=== PATIENT | female | born 1955 | race Caucasian/White ===

== ENCOUNTER 2019-10-07 08:19 | Outpatient (CLI) | payer MEDICARE, OTHER, SELFPAY | END 2019-10-07 08:20 | disposition home or self-care (01) | LOC: CHSIMG 08:22 | PROVIDERS: PCP Internal Medicine; Visit Provider Internal Medicine | DX: Z53.9 Procedure and treatment not carried out, unspecified reason (principal) | CPT/HCPCS: 99199 ==

== ENCOUNTER 2020-03-26 10:05 | Outpatient (CLI) | payer MEDICARE, SELFPAY ==
[2020-03-26 10:55] LABS: SARS-CoV-2 Ag Positive (Negative)
== END 2020-03-26 10:06 | disposition home or self-care (01) ==
LOC: CHSLAB 10:11
PROVIDERS: PCP Internal Medicine; Visit Provider Internal Medicine
DX: U07.1 COVID-19 (principal)
CPT/HCPCS: 87426; C9803

== ENCOUNTER 2020-10-04 13:34 | Outpatient (CLI) | payer MEDICARE, OTHER, SELFPAY ==
--- NOTE | ~2020-10-04 | XR_ITS ---
XR knee LT min 4V DATE: 10/04/2020 14:00 INDICATION: Bilateral knee pain. No injury. TECHNIQUE: 4 views COMPARISON: None FINDINGS: . No radiopaque intra-articular loose body or chondrocalcinosis. No fracture or dislocation or joint effusion. No periosteal reaction or bone destruction. IMPRESSION: No significant abnormality Reviewed, dictated and finalized at location A. IMPRESSION: No significant abnormality
--- NOTE | ~2020-10-04 | XR_ITS ---
XR knee RT min 4V DATE: 10/04/2020 14:00 INDICATION: Bilateral knee pain. No injury. TECHNIQUE: 4 views of right knee COMPARISON: None FINDINGS: Mild loss of height of medial compartment joint space. No fracture or dislocation or joint effusion, radiopaque interarticular loose body or chondrocalcinosis. No periosteal reaction or bone d estruction. IMPRESSION: Mild loss of height of medial compartment joint space; no fracture or dislocation or join t effusion Reviewed, dictated and finalized at location A. IMPRESSION: Mild loss of height of medial compartment joint space; no fracture or dislocation or joint effusion
== END 2020-10-04 13:35 | disposition home or self-care (01) ==
LOC: CHSIMG 13:38
PROVIDERS: PCP Internal Medicine; Visit Provider Internal Medicine
DX: M25.562 Pain in left knee (principal); M25.561 Pain in right knee
CPT/HCPCS: 73564

== ENCOUNTER 2021-01-17 13:42 | Outpatient (CLI) | payer MEDICARE, OTHER, SELFPAY ==
--- NOTE | ~2021-01-17 | MM_ITS ---
EXAMINATION: MM screening [facility] w [facility] HISTORY: Screening mammogram TECHNIQUE: Craniocaudal and mediolateral oblique 3-D tomosynthesis images were obtained and synthetic 2-D images were generated. CAD analysis was submitted and interpreted. COMPARISON: No prior mammogram is available for comparison at this institution. BREAST PARENCHYMAL COMPOSITION: FINDINGS: Stable circumscribed 6 mm benign-appearing posterior mid outer left intramammary lymph node . Stable approximately 6 mm circumscribed mass with benign calcification, likely a small partially calc ified fibroadenoma, anterior outer mid left breast There is no evidence of suspicious mass, calcification, or architectural distortion to suggest malign pamlea in either breast. There has been no suspicious interval change. IMPRESSION: 1. No mammographic evidence of malignancy. 2. Recommend routine screening mammography in one year. BI-RADS Category 2: Benign finding(s). Reviewed, dictated and finalized at location A.
--- NOTE | ~2021-01-17 | DEXA_ITS ---
Bone Density Report Name: Yvonne Jones Age: 66 Sex: Female Ethnicity: White Date of : 1955 Indication: postmenopausal; screening for osteoporosis; height loss; Referring Provider: William Orellana Study: Bone densitometry was performed. Exam Date: January 17, 2021 Accession number: [id number] Bone Density: Region BMD T-score Z-score Classification AP Spine(L1, L2, L3) 0.905 -1.0 0.8 Normal Femoral Neck (Left) 0.772 -0.7 0.9 Normal Total Hip (Left) 0.848 -0.8 0.6 Normal Femoral Neck (Right) 0.709 -1.3 0.4 Osteopenia Total Hip (Right) 0.815 -1.0 0.3 Normal Femoral Neck Mean 0.740 -1.0 0.6 Normal Total Hip Mean 0.832 -0.9 0.4 Normal World Health Organization criteria for BMD impression classify patients as: Normal (T-score at or above -1.0), Osteopenia (T-score between -1.0 and -2.5), or Osteoporosis (T-score at or below -2.5). 10-year Fracture Risk(1): Major Osteoporotic Fracture 8.3% Hip Fracture 0.8% Reported Risk Factors: [place] (), Neck BMD=0.709, BMI=33.1 (1) FRAX(R) Version 3.08. Fracture probability calculated for an untreated patient. Fracture probability may be lower if the patient has received treatment. Clinical Information Provided by Patient: Has used the following medications: Vitamin D Patient maximum height was 62.5 Menopause Age: 54 No regular weight bearing exercise Does not regularly consume dairy products Drinks caffeinated beverages Onset of menses at age 11 Number of children 2 Impression: The patient has low bone mass, based on the Right Femoral Neck T-score. Discussion: BONE DENSITY IS LOW AT ONE OR MORE SKELETAL SITES. This patient's lowest T-score is low at one or more skeletal sites. It meets the World Health Organization's (WHO) criteria for ?low bone mass? (T-score between -1.0 and -2.5). The patient's 10-year risk of fracture as calculated by FRAX is less than the threshold where pharmacological therapy is recommended by the National Osteoporosis Foundation (NOF). However, all treatment decisions require clinical judgment and consideration of individual patient factors, including patient preferences, comorbidities, previous drug use, risk factors not captured in the FRAX model (e.g., frailty, falls, vitamin D deficiency, increased bone turnover, interval significant decline in bone density) and possible under or overestimation of fracture risk by FRAX. The patient should follow a healthful lifestyle (good nutrition with adequate calcium and vitamin D, and appropriate weight-bearing exercise). Follow-Up: Consider repeating this study in 2 to 3 years to reassess this patient's status, or sooner if there is some new clinical indication. Reported by: Dr. Compa Pike on 01/17/2021 2:35:00 PM.
== END 2021-01-17 13:43 | disposition home or self-care (01) ==
PROVIDERS: PCP Internal Medicine; Visit Provider Internal Medicine
DX: M81.0 Age-related osteoporosis without current pathological fracture (principal); Z12.31 Encounter for screening mammogram for malignant neoplasm of breast
CPT/HCPCS: 77063; 77067; 77080

== ENCOUNTER 2021-07-14 12:30 | Emergency (ER) | payer MEDICARE, OTHER, SELFPAY ==
--- NOTE | ~2021-07-14 | CT_ITS ---
EXAMINATION: CT brain wo con DATE: 07/14/2021 13:19 INDICATION: Syncope with 20 seconds duration loss of consciousness. Weakness. TECHNIQUE: Computed tomography (CT) of the head was performed without intravenous contrast. Sagittal and coronal reconstructions were performed. The mA was adjusted according to patient size. Iterative reconstruction technique was employed. The dose-length product was 529.67 mGy-cm. COMPARISON: None FINDINGS: No acute intracranial hemorrhage, acute infarction or abnormal extra axial fluid collection. Ventricl es are normal and symmetric. No mass/mass effect. The orbits, paranasal sinuses and mastoid air cells are normal. IMPRESSION: 1. Normal head CT. Reviewed, dictated and finalized at location A. IMPRESSION: 1. Normal head CT.
--- NOTE | ~2021-07-14 | XR_ITS ---
EXAMINATION: XR chest 1V portable DATE: 07/14/2021 13:20 INDICATION: Syncope TECHNIQUE: frontal view of the chest was obtained. COMPARISON: Chest radiograph dated 2 FINDINGS: The lungs remain clear with no focal airspace opacities, pulmonary edema, pleural effusion or pneumot horax. The cardiomediastinal silhouette is normal. Mild to moderate thoracic spondylosis. IMPRESSION: 1. No acute cardiopulmonary disease. Reviewed, dictated and finalized at location A.
[2021-07-14 12:30] VITALS: BP 130/69; PULSE 61; RESP 20; TEMP 36.9; O2SAT 98
--- NOTE | 2021-07-14 12:42 | ECG_ITS ---
Measurements Intervals [place] Rate: 64 P: 17 [place]: 144 QRS: 62 QRSD: 83 T: 80 QT: 405 QTc: 418 Interpretive Statements SINUS RHYTHM MINOR T-WAVE ABNORMALITY BORDERLINE ECG COMPARED TO ECG 02/08/2019 09:09:33 NO SIGNIFICANT CHANGES Electronically Signed On 07-15-2021 16:54:07 CDT by Yogi Rodriguez M.D.
--- NOTE | 2021-07-14 12:49 | PC.NURSE ---
johnie from xray in with pt , pt refused head ct and chest xray. pt states i dont need that , all i need is some iv fluids
--- NOTE | 2021-07-14 12:50 | PC.NURSE ---
Doctor Fernando in with pt
[2021-07-14 12:58] LABS: Basophils Absolute Auto 0.04 K/mm3 (0.00-0.10); Basophils Percent Auto 0.6 % (0.0-1.0); Eosinophils Absolute Auto 0.05 K/mm3 (0.02-0.50); Eosinophils Percent Auto 0.8 % (1.0-6.0); Hematocrit 38.7 % (35.0-42.0); Hemoglobin 13.2 g/dL (11.7-13.8); Immature Granulocyte Absolute 0.03 K/mm3 (0.00-0.00); Immature Granulocyte Percent A 0.5 % (0.0-0.0); Lymphocytes Absolute Auto 1.79 K/mm3 (1.10-4.50); Lymphocytes Percent Auto 28.2 % (18.0-42.0); Mean Corpuscular HGB Conc 34.1 g/dL (32.0-36.0); Mean Corpuscular Hemoglobin 30.6 pg (27.0-31.0); Mean Corpuscular Volume 89.8 fL (78.0-102.0); Mean Platelet Volume 10.2 fl (9.2-11.8); Monocytes Absolute Auto 0.41 K/mm3 (0.10-0.90); Monocytes Percent Auto 6.5 % (2.0-11.0); Neutrophils Percent Auto 63.4 % (50.0-70.0); Platelet Count Result 173 K/mm3 (150-420); Red Blood Count 4.31 M/mm3 (4.20-5.40); Red Cell Distribution Width 12.3 % (11.6-14.4); White Blood Count 6.3 K/mm3 (4.8-10.8)
[2021-07-14 13:03] VITALS: BP 123/85; PULSE 68; RESP 14; O2SAT 100
[2021-07-14 13:15] LABS: Alanine Aminotransferase 51 U/L (14-59); Albumin Level 3.7 g/dL (3.4-5.0); Alkaline Phosphatase 121 U/L (46-116); Anion Gap 9 mmol/L (8-16); Aspartate Amino Transferase 22 U/L (15-37); Bilirubin,Total 0.6 mg/dL (0.00-1.00); Blood Urea Nitrogen 13 mg/dL (7-18); Calcium 9.9 mg/dL (8.5-10.1); Carbon Dioxide 27 mmol/L (21-32); Chloride 103 mmol/L (98-108); Estimated Glomerular Filt Rate 59; Glucose 133 mg/dL (70-99); Osmolality Calculated 290 mOsm/kg (285-295); Potassium 3.4 mmol/L (3.5-5.1); Sodium 139 mmol/L (136-145); Total Protein 7.1 g/dL (6.4-8.2); Troponin I 7.6 ng/L (0.00-60.4)
[2021-07-14 13:18] LABS: Lactic Acid Reflex 1.7 mmol/L (0.4-2.0)
--- NOTE | 2021-07-14 13:19 | PC.NURSE ---
pt agrees to ct and chest xray after speaking with dr ba. pt returns from xray department. pt to bathroom. no complaint of lightheadedness after bathroom.
[2021-07-14] MEDS: SODIUM CHLORIDE 0.9% IV 1,000 ML 999 ML IV CONT (13:42)
[2021-07-14 13:55] VITALS: BP 136/70; PULSE 62; RESP 20; TEMP 36.4; O2SAT 97
--- NOTE | 2021-07-14 14:03 | ED.WEAKNESS ---
HPI - Weakness General Chief complaint: Weakness Stated complaint: Weakness Time Seen by Provider: 07/14/21 12:32 Source: patient, EMS and RN notes reviewed Mode of arrival: EMS Limitations: no limitations History of Present Illness MD Complaint: difficulty walking (pt had fainting spell after using the commode. See the EMS notes. no lateralizing signs.) Onset (ago): hour(s) (2) Duration: now resolved Migration: none Quality: other (pt was pain-free in the ED) Relieving factors: none Exacerbating factors: none Context: new medication Associated symptoms: denies other symptoms Related Data Home Medications Medication Instructions Recorded Confirmed cholecalciferol (vitamin D3) 1,000 unit PO DAILY 02/03/19 07/14/21 cholecalciferol (vitamin D3) 50,000 unit PO WEEKLY 02/03/19 07/14/21 losartan-hydrochlorothiazide 1 tablet PO DAILY 02/03/19 07/14/21 pravastatin 10 mg PO DAILY 02/03/19 07/14/21 Allergies Allergy/AdvReac Type Severity Reaction Status Date / Time No Known Allergies Allergy Verified 02/08/19 09:56 Review of Systems Review of Systems: All systems reviewed & are unremarkable except as noted in HPI and below PMFSH Past Medical History Medical History Arthritis HTN (hypertension) Hypercholesterolemia Obesity Vaso vagal episode Exam Const: General: healthy appearing, no acute distress and alert Nutritional Appearance: well nourished Orientation/consciousness: patient oriented x3 Limitations: no limitations HENMT: Head: normal to inspection Ears: external ears normal, TM's normal bilaterally and EAC's normal General nose exam: Normal external nose present and Normal nares present Face and sinus: normal facial exam and sinuses nontender Mouth: Yes moist mucous membranes Eyes: Conjunctivae: conjunctivae normal Pupils: Equal, round and reactive pupils present EOM: EOMs intact bilaterally Neck: Neck: normal visual inspection Chest: Chest palpation & inspection: normal inspection of the chest Resp: Effort & Inspection: normal respiratory effort Auscultation: clear to auscultation bilaterally Cardio: Rate: regular rate Rhythm: regular rhythm GI: GI Palp: Yes Soft to palpation and No Tenderness to palpation present (GI) Auscultation: normal bowel sounds : General: Yes bladder normal to palpation and Yes no CVA tenderness Back/Spine/Pelvis: Back: no CVA tenderness Skin: General skin exam: normal color Rashes: no rashes Neuro: General: patient oriented x3, moves all extremities, no meningeal signs, no focal motor deficits and CN's II-XI intact bilaterally Extrem: General: normal to inspection and no pedal edema Psych: Appearance: grossly normal and well kempt Mental Status: mental status grossly normal Attitude: cooperative Thought content: Yes Normal thought content present Course Course Emergency Course: Pt was stable in the ED. She was adamant about going home. Reevaluation(s) Reevaluation #1: VSS Date: 07/14/21 Time: 13:14 Vital Signs Vital signs: Vital Signs Temperature 36.9 C 07/14/21 12:30 Pulse Rate 61 07/14/21 12:30 Respiratory Rate 20 07/14/21 12:30 Blood Pressure 130/69 07/14/21 12:30 Pulse Oximetry 98 07/14/21 12:30 Temperature 37.1 C 07/14/21 14:04 Pulse Rate 68 07/14/21 14:04 Respiratory Rate 20 07/14/21 14:04 Blood Pressure 144/73 H 07/14/21 14:04 Pulse Oximetry 97 07/14/21 14:04 MDM - Weakness Differential Diagnosis Differential diagnosis: Likely acute myocardial infarction, anemia, hypoglycemia, sepsis and dehydration Medical Records Attestation: I reviewed the patient's medical records. Lab Data Attestation: I reviewed the patient's lab results. Result diagrams: 07/14/21 12:54 07/14/21 12:54 Labs: Lab Results 07/14/21 07/14/21 07/14/21 Range/Units 12:54 12:54 12:54 WBC 6.3 (4.8-10.8) K/mm3 RBC 4.31 (4.2
[2021-07-14 14:04] VITALS: BP 144/73; PULSE 68; RESP 20; TEMP 37.1; O2SAT 97
== END 2021-07-14 14:18 | disposition home or self-care (01) ==
PROVIDERS: Emergency Provider Emergency Medicine; PCP Internal Medicine
DX: R55 Syncope and collapse (principal); E87.6 Hypokalemia; I10 Essential (primary) hypertension; E78.00 Pure hypercholesterolemia, unspecified
CPT/HCPCS: 36415; 70450; 71045; 80053; 83605; 84484; 85025; 93005; 99284; J7030

== ENCOUNTER 2021-09-02 23:50 | Emergency (ER) | payer MEDICARE, OTHER, SELFPAY ==
[2021-09-02 23:55] VITALS: BP 172/83; PULSE 72; RESP 20; TEMP 37.1; O2SAT 99
--- NOTE | 2021-09-03 00:16 | ED.GENADULT ---
HPI - General Adult General Chief complaint: Urogenital-Female Stated complaint: uti Time Seen by Provider: 09/03/21 00:16 Source: patient History of Present Illness HPI narrative: 66-year-old female patient is here with complaints of urinary urgency with frequency and burning sensation for the last 2 days . states he tried an azo from an old left over prescription this evening with no relief. Denies any fever or chills. Denies any back pain or abdominal pain. Denies any nausea and vomiting. Has had urinary tract infection in the past. Related Data Home Medications Medication Instructions Recorded Confirmed losartan 50 mg-hydrochlorothiazide 1 tablet PO DAILY 02/03/19 09/02/21 12.5 mg tablet pravastatin 10 mg tablet 10 mg PO DAILY 02/03/19 09/02/21 Allergies Allergy/AdvReac Type Severity Reaction Status Date / Time No Known Allergies Allergy Verified 02/08/19 09:56 Review of Systems Review of Systems: All systems reviewed & are unremarkable except as noted in HPI and below PMFSH Past Medical History Medical History Arthritis HTN (hypertension) Hypercholesterolemia Obesity Vaso vagal episode Exam Const: General: healthy appearing and alert; No no acute distress (moderately uncomfortable) or ill appearing Nutritional Appearance: well nourished Orientation/consciousness: patient oriented x3 Limitations: no limitations HENMT: Head: normal to inspection Ears: external ears normal General nose exam: Normal external nose present Face and sinus: normal facial exam Mouth: Yes moist mucous membranes Eyes: Pupils: Equal, round and reactive pupils present EOM: EOMs intact bilaterally Direct Ophthalmoscopy: no photophobia Neck: Neck: normal visual inspection Chest: Chest palpation & inspection: normal inspection of the chest Resp: Effort & Inspection: normal respiratory effort Cardio: Rate: regular rate Rhythm: regular rhythm GI: GI Palp: Yes Soft to palpation, No Tenderness to palpation present (GI), No Guarding due to palpation present (GI), No Rigid due to palpation, No Palpable mass present and No Rebound tenderness present Auscultation: normal bowel sounds : General: Yes bladder normal to palpation Other: Pelvic exam deferred Back/Spine/Pelvis: Back: no CVA tenderness Skin: General skin exam: normal color Rashes: no rashes Wounds: no wounds Neuro: General: patient oriented x3, moves all extremities and no focal motor deficits Speech: normal speech Gait exam (Neuro): Normal gait present Extrem: General: normal to inspection Psych: Mental Status: mental status grossly normal Affect: normal affect Attitude: cooperative Course Course Emergency Course: Urinalysis is nitrite positive with significant pyuria bacteriuria and hematuria. Patient has been given a dose of denies Pyridium 200 mg as well as Bactrim DS in the ER. She will be discharged home with the prescription for Bactrim and Pyridium. Vital Signs Vital signs: Vital Signs Temperature 37.1 C 09/02/21 23:55 Pulse Rate 72 09/02/21 23:55 Respiratory Rate 20 09/02/21 23:55 Blood Pressure 172/83 H 09/02/21 23:55 Pulse Oximetry 99 09/02/21 23:55 Oxygen Delivery Room Air 09/02/21 23:55 Temperature 37.1 C 09/02/21 23:55 Pulse Rate 72 09/02/21 23:55 Respiratory Rate 20 09/02/21 23:55 Blood Pressure 172/83 H 09/02/21 23:55 Pulse Oximetry 99 09/02/21 23:55 Oxygen Delivery Room Air 09/02/21 23:55 Medical Decision Making Vital Signs Vital Signs: Vital Signs Temperature 37.1 C 09/02/21 23:55 Pulse Rate 72 09/02/21 23:55 Respiratory Rate 09/02/21 23:55 Blood Pressure 172/83 H 09/02/21 23:55 Pulse Oximetry 99 09/02/21 23:55 Oxygen Delivery Room Air 09/02/21 23:55 Temperature 37.1 C 09/02/21 23:55 Pulse Rate 72 09/02/21 23:55 Respiratory Rate 09/02/21 23:55 Blood Pressure 172/83 H 06
[2021-09-03 00:18] LABS: Add Urine Microscopic? YES; Appearance Urine Clear (Clear); Bilirubin Urine Negative (Negative); Blood Urine 3+ (Negative); Color Urine Dark Yellow (Yellow); Glucose Urine UA Negative (Negative); Ketones Urine Negative (Negative); Leukocyte Esterase Ur 3+ (Negative); Nitrate Urine Positive (Negative); Protein Urine 1+ (Negative); Specific Grav Ur <= 1.005 (1.010-1.020); Urobilinogen Urine 0.2 mg/dL (0.2-1.0)
[2021-09-03 00:26] LABS: Bacteria Urine 2+ /hpf; RBC Urine >75 /hpf (0-2); Squamous Epithelial Cell Urine Rare /hpf (Few); WBC Urine >75 /hpf (0-3)
[2021-09-03] MEDS: PHENAZOPYRIDINE HCL 100 MG TABLET 200 MG PO (00:28)
[2021-09-03 00:34] VITALS: BP 158/80; PULSE 88; RESP 18; TEMP 37.1; O2SAT 99
== END 2021-09-03 00:38 | disposition home or self-care (01) ==
PROVIDERS: Emergency Provider Emergency Medicine; PCP Internal Medicine
DX: N39.0 Urinary tract infection, site not specified (principal); I10 Essential (primary) hypertension; E78.00 Pure hypercholesterolemia, unspecified
CPT/HCPCS: 81001; 99283; A9270

== ENCOUNTER 2021-09-30 10:22 | Outpatient (CLI) | payer MEDICARE, OTHER, SELFPAY ==
--- NOTE | ~2021-09-30 | CT_ITS ---
EXAMINATION: CT abdomen pelvis wo/w con DATE: 09/30/2021 11:57 INDICATION: Hematuria. Frequent urinary tract infections. TECHNIQUE: Computed tomography (CT) of the abdomen and pelvis was performed without and with intraven ous contrast using a total of 130 mL Omnipaque-350 intravenous contrast with a double-bolus technique for simultaneous opacification of the renal parenchyma and renal collecting system. Automated exposu re control and iterative reconstruction technique were employed. The dose-length product was 1304.57 mGy-cm. COMPARISON: None FINDINGS: The visualized portions of the lung bases demonstrate mild atelectasis. No pleural effusion. The hear t size is normal. There are coronary artery calcifications. No pericardial effusion. There is a small sliding hiatal hernia. There is diffuse hepatic steatosis. There are cysts in the liver measuring up to 13 mm. There are gallstones in the gallbladder, which is normal in size. The spleen, pancreas, an d adrenal glands are normal. There are cysts in the kidneys including peripelvic cysts measuring up t o 3.6 cm on the left. There is no urolithiasis. The ureters are not well opacified distally, but are normal. The bladder is not well distended and only partially opacified, but is normal. There are smal l calcified fibroids in the uterus. There are no dilated loops of bowel. The appendix is normal. Ther e are no pathologically enlarged lymph nodes. There is no free intraperitoneal fluid. There is severe thoracic spondylosis and moderate lumbar spondylosis. 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 IMPRESSION: 1. No etiology for hematuria. Reviewed, dictated and finalized at location A.
[2021-09-30 11:15] LABS: Estimated Glomerular Filt Rate > 60
== END 2021-09-30 10:23 | disposition home or self-care (01) ==
LOC: CHSIMG 10:25
PROVIDERS: PCP Internal Medicine; Visit Provider Internal Medicine
DX: R31.9 Hematuria, unspecified (principal)
CPT/HCPCS: 74178; Q9967

== ENCOUNTER 2022-05-26 07:13 | Outpatient (CLI) | payer MEDICARE, OTHER, SELFPAY ==
--- NOTE | ~2022-05-26 | MM_ITS ---
EXAMINATION: MM screening [facility] BI w renata HISTORY: Screening mammogram TECHNIQUE: Craniocaudal and mediolateral oblique 3-D tomosynthesis images were obtained and synthetic 2-D images were generated. CAD analysis was submitted and interpreted. COMPARISON: 01/17/2021, 01/17/2019 BREAST PARENCHYMAL COMPOSITION: There are scattered areas of fibroglandular density. FINDINGS: No suspicious mass, calcification, or architectural distortion are identified in either chava ast to suggest malignancy. There has been no suspicious interval change. IMPRESSION: 1. No mammographic evidence of malignancy. 2. Recommend routine screening mammography in one year. BI-RADS Category 1: Negative Reviewed, dictated and finalized at location A. [employer]
== END 2022-05-26 07:14 | disposition home or self-care (01) ==
LOC: CHSIMG 07:15
PROVIDERS: PCP Internal Medicine; Visit Provider Internal Medicine
DX: Z12.31 Encounter for screening mammogram for malignant neoplasm of breast (principal)
CPT/HCPCS: 77063; 77067

== ENCOUNTER 2022-11-01 14:36 | Emergency (ER) | payer MEDICARE, OTHER, SELFPAY ==
--- NOTE | ~2022-11-01 | XR_ITS ---
EXAMINATION: XR chest 2V DATE: 11/01/2022 15:09 INDICATION: Near syncope. TECHNIQUE: Frontal and lateral views of the chest were obtained. COMPARISON: Chest single view 07/14/2021 FINDINGS: There is no pneumonia, pleural effusion, or pneumothorax. The heart size is normal. IMPRESSION: 1. No acute cardiopulmonary disease. Reviewed, dictated and finalized at location E.
[2022-11-01 14:36] VITALS: BP 141/70; PULSE 78; RESP 20; TEMP 36.6; O2SAT 95
[2022-11-01] MEDS: SODIUM CHLORIDE 0.9% IV 1,000 ML 999 ML IV CONT (14:40)
--- NOTE | 2022-11-01 14:40 | ECG_ITS ---
Measurements Intervals [place] Rate: 69 P: 32 [place]: 143 QRS: 67 QRSD: 73 T: 67 QT: 382 QTc: 411 Interpretive Statements SINUS RHYTHM POSSIBLE LEFT ATRIAL ENLARGEMENT [-0.1mV P-WAVE IN V1/V2] BORDERLINE ECG COMPARED TO ECG 07/14/2021 13:02:52 NO SIGNIFICANT CHANGES Electronically Signed On 11-02-2022 9:59:03 CDT by Nahid Lira M.D.
--- NOTE | 2022-11-01 14:45 | ED.SYNCOPE ---
HPI - Syncope General Chief Complaint: Syncope Stated Complaint: near syncope Time Seen by Provider: 11/01/22 14:40 Source: patient and EMS Mode of arrival: EMS Limitations: no limitations History of Present Illness HPI narrative: patient is a 67-year-old female at the football game today in the sun for a little over an hour had a near syncopal /syncopal episode. She got overheated and tried to get to the shade and further sat down/ collapse into the grassy area. She appeared unresponsive to bystander however she remembers the entire episode. No seizure activity. MD complaint: felt faint, almost passed out and collapsed Onset (ago): minute(s) Duration of episode: 20 -: second(s) Prodromal symptoms: none Witnessed: Yes - by Bystander Context: standing up Injuries sustained associated with event: none Current symptoms: none Treatments prior to arrival: none Related Data Home Medications Medication Instructions Recorded Confirmed losartan 50 mg-hydrochlorothiazide 1 tablet PO DAILY 02/03/19 11/01/22 12.5 mg tablet pravastatin 10 mg tablet 10 mg PO DAILY 02/03/19 11/01/22 Allergies Allergy/AdvReac Type Severity Reaction Status Date / Time No Known Allergies Allergy Verified 11/01/22 15:03 Review of Systems Review of Systems: All systems reviewed & are unremarkable except as noted in HPI and below Constitutional: Constitutional: Reports no additional constitutional complaints Eyes: Eyes: Reports no additional eye complaints ENT: Reports system reviewed and no additional complaints, except as documented Cardiovascular: Cardiovascular: Reports no additional cardiovascular complaints Respiratory: Respiratory: Reports no additional respiratory complaints Gastrointestinal: Gastrointestinal: Reports no additional gastrointestinal complaints Genitourinary: Genitourinary: Reports no additional female genitourinary complaints Musculoskeletal: Musculoskeletal: Reports no additional musculoskeletal complaints Integumentary/Breasts: Skin/Breast: Reports system reviewed and no additional complaints, except as docu Neurologic: Reports system reviewed and no additional complaints, except as documented Psychiatric: Psychiatric: Reports no additional psychiatric complaints Endocrine: Endocrine: Reports no additional endocrine complaints Hematologic/Lymphatic: Hematologic/Lymphatic: Reports no additional hematologic/lymphatic complaints Allergic/Immunologic: Allergic/Immunologic: Reports no additional allergic/immunologic complaints PMFSH Past Medical History Medical History Arthritis HTN (hypertension) Hypercholesterolemia Obesity Vaso vagal episode Exam Const: General: healthy appearing Nutritional Appearance: well nourished Orientation/consciousness: patient oriented x3 HENMT: Head: normal to inspection Ears: external ears normal Face/Nose/Sinus: Normal external nose present Eyes: Conjunctivae: conjunctivae normal Pupils: Equal, round and reactive pupils present EOM: EOMs intact bilaterally Neck: Neck: normal visual inspection Chest: Chest palpation & inspection: normal inspection of the chest Resp: Effort & Inspection: normal respiratory effort and not labored Auscultation: clear to auscultation bilaterally Cardio: Rate: regular rate Rhythm: regular rhythm Heart sounds: no murmurs GI: Inspection: non-distended GI Palp: Yes Soft to palpation and No Tenderness to palpation present (GI) Auscultation: normal bowel sounds : General: Yes bladder normal to palpation Back/Spine/Pelvis: Back: no CVA tenderness Skin: General skin exam: normal color Rashes: no rashes Wounds: no wounds Neuro: General: patient oriented x3 Cranial nerves: Yes Nystagmus not present Speech: normal speech Extrem: General: normal to inspection Psych: Mental Status: mental status grossly normal Course Vital Signs Vital signs: Vital Signs
[2022-11-01 15:02] LABS: Basophils Absolute Auto 0.04 K/mm3 (0.00-0.10); Basophils Percent Auto 0.7 % (0.0-1.0); Eosinophils Absolute Auto 0.06 K/mm3 (0.02-0.50); Hematocrit 36.2 % (35.0-42.0); Hemoglobin 12.3 g/dL (11.7-13.8); Immature Granulocyte Absolute 0.03 K/mm3 (0.00-0.00); Immature Granulocyte Percent A 0.5 % (0.0-0.0); Lymphocytes Absolute Auto 1.45 K/mm3 (1.10-4.50); Lymphocytes Percent Auto 24.1 % (18.0-42.0); Mean Corpuscular Hemoglobin 30.9 pg (27.0-31.0); Mean Platelet Volume 10.5 fl (9.2-11.8); Monocytes Absolute Auto 0.45 K/mm3 (0.10-0.90); Monocytes Percent Auto 7.5 % (2.0-11.0); Neutrophils Percent Auto 66.2 % (50.0-70.0); Platelet Count Result 174 K/mm3 (150-420); Red Blood Count 3.98 M/mm3 (4.20-5.40); Red Cell Distribution Width 12.5 % (11.6-14.4)
[2022-11-01 15:18] LABS: Alanine Aminotransferase 26 U/L (14-59); Albumin Level 3.3 g/dL (3.4-5.0); Alkaline Phosphatase 92 U/L (46-116); Anion Gap 11 mmol/L (8-16); Aspartate Amino Transferase 14 U/L (15-37); Bilirubin,Total 0.5 mg/dL (0.00-1.00); Blood Urea Nitrogen 16 mg/dL (7-18); Calcium 8.7 mg/dL (8.5-10.1); Carbon Dioxide 25 mmol/L (21-32); Chloride 109 mmol/L (98-108); Creatine Kinase 100 U/L (26-192); Estimated CRCL calculation 42 ml/min; Estimated Glomerular Filt Rate 50; Glucose 153 mg/dL (70-99); Magnesium 1.8 mg/dL (1.8-2.4); Osmolality Calculated 304 mOsm/kg (285-295); Potassium 3.2 mmol/L (3.5-5.1); Sodium 145 mmol/L (136-145); Total Protein 6.2 g/dL (6.4-8.2); Troponin I 6.3 ng/L (0.00-60.4)
[2022-11-01 15:35] VITALS: BP 136/64; PULSE 78; RESP 14; O2SAT 98
[2022-11-01] MEDS: POTASSIUM CHLORIDE 20 MEQ ER TABLET PO (15:55)
[2022-11-01 15:59] LABS: Bilirubin Urine Negative (Negative); Blood Urine Negative (Negative); Color Urine Light Yellow (Yellow); Glucose Urine UA Negative (Negative); Ketones Urine Negative (Negative); Leukocyte Esterase Ur Trace LEU/UL (Negative); Nitrate Urine Negative (Negative); Protein Urine Negative (Negative); Specific Grav Ur 1.015 (1.010-1.020); Urobilinogen Urine 0.2 mg/dL (0.2-1.0); pH Urine 6.5 (5.0-8.0)
[2022-11-01 16:05] LABS: Add Urine Microscopic? YES; Amorphous Sediment Urine Few; Appearance Urine Slightly Cloudy (Clear); Bacteria Urine 1+ /hpf; Mucus Urine Moderate /lpf; RBC Urine 0-2 /hpf (0-2); Squamous Epithelial Cell Urine Moderate /hpf (Few); WBC Urine 0-3 /hpf (0-3)
[2022-11-01 16:11] VITALS: BP 131/69; PULSE 74; RESP 16; TEMP 36.6; O2SAT 100
== END 2022-11-01 16:15 | disposition home or self-care (01) ==
PROVIDERS: Emergency Provider Emergency Medicine; PCP Internal Medicine
DX: T67.5XXA Heat exhaustion, unspecified, initial encounter (principal); I10 Essential (primary) hypertension
CPT/HCPCS: 36415; 71046; 80053; 81001; 82550; 83735; 84484; 85025; 93005; 96360; 99284; A9270; J7030

== ENCOUNTER 2022-11-13 16:25 | Outpatient (CLI) | payer MEDICARE, SELFPAY ==
[2022-11-13 16:47] LABS: Basophils Absolute Auto 0.05 K/mm3 (0.00-0.10); Basophils Percent Auto 0.6 % (0.0-1.0); Eosinophils Absolute Auto 0.05 K/mm3 (0.02-0.50); Eosinophils Percent Auto 0.6 % (1.0-6.0); Hemoglobin 13.3 g/dL (11.7-13.8); Immature Granulocyte Absolute 0.03 K/mm3 (0.00-0.00); Immature Granulocyte Percent A 0.3 % (0.0-0.0); Lymphocytes Absolute Auto 2.27 K/mm3 (1.10-4.50); Lymphocytes Percent Auto 25.3 % (18.0-42.0); Mean Corpuscular HGB Conc 33.3 g/dL (32.0-36.0); Mean Corpuscular Hemoglobin 29.8 pg (27.0-31.0); Mean Corpuscular Volume 89.7 fL (78.0-102.0); Mean Platelet Volume 10.5 fl (9.2-11.8); Monocytes Absolute Auto 0.51 K/mm3 (0.10-0.90); Monocytes Percent Auto 5.7 % (2.0-11.0); Neutrophils Absolute Auto 6.1 K/mm3 (1.7-7.2); Neutrophils Percent Auto 67.5 % (50.0-70.0); Platelet Count Result 210 K/mm3 (150-420); Red Blood Count 4.46 M/mm3 (4.20-5.40); Red Cell Distribution Width 12.2 % (11.6-14.4)
[2022-11-13 17:26] LABS: Alanine Aminotransferase 40 U/L (14-59); Alkaline Phosphatase 110 U/L (46-116); Anion Gap 8 mmol/L (8-16); Aspartate Amino Transferase 19 U/L (15-37); Bilirubin,Total 0.4 mg/dL (0.00-1.00); Blood Urea Nitrogen 16 mg/dL (7-18); Calcium 9.2 mg/dL (8.5-10.1); Carbon Dioxide 29 mmol/L (21-32); Chloride 105 mmol/L (98-108); Estimated Glomerular Filt Rate > 60; Free T4 Free Thyroxine 0.93 ng/dL (0.76-1.46); Glucose 91 mg/dL (70-99); Osmolality Calculated 295 mOsm/kg (285-295); Potassium 3.9 mmol/L (3.5-5.1); Sodium 142 mmol/L (136-145); Thyroid Stimulating Hormone 1.95 uIU/mL (0.36-3.74); Total Protein 7.1 g/dL (6.4-8.2)
[2022-11-13 17:53] LABS: Appearance Urine Clear (Clear); Bilirubin Urine Negative (Negative); Blood Urine Negative (Negative); Color Urine Light Yellow (Yellow); Glucose Urine UA Negative (Negative); Ketones Urine Negative (Negative); Leukocyte Esterase Ur 2+ (Negative); Nitrate Urine Negative (Negative); Protein Urine Negative (Negative); Specific Grav Ur <= 1.005 (1.010-1.020); Urobilinogen Urine 0.2 mg/dL (0.2-1.0)
[2022-11-13 18:01] LABS: Add Urine Microscopic? YES; Bacteria Urine Trace /hpf; RBC Urine 0-2 /hpf (0-2); Squamous Epithelial Cell Urine Occasional /hpf (Few)
== END 2022-11-13 16:26 | disposition home or self-care (01) ==
LOC: CHSLAB 16:28
PROVIDERS: PCP Internal Medicine; Visit Provider Internal Medicine
DX: R42 Dizziness and giddiness (principal); I10 Essential (primary) hypertension; R31.9 Hematuria, unspecified
CPT/HCPCS: 36415; 80053; 81001; 84439; 84443; 84481; 85025; 87086; 87088

== ENCOUNTER 2022-11-20 07:40 | Outpatient (CLI) | payer MEDICARE, OTHER, SELFPAY ==
--- NOTE | ~2022-11-20 | US_ITS ---
EXAMINATION: US carotid duplex BI DATE: 11/20/2022 08:55 INDICATION: Syncope and dyspnea TECHNIQUE: Grayscale, color Doppler, and pulsed Doppler images of the cervical carotid arteries were obtained. The degree of vessel stenosis is placed in one of the following categories: normal, <50%, 5 0-69%, >=70% but less than near-occlusion, near-occlusion, or total occlusion. Note that percent sten osis relative to normal distal artery lumen diameter is indirectly measured from velocity measurement s as described by Herve, et al. Radiology 2003; 229:340-346. COMPARISON: None. FINDINGS: RIGHT: The right common carotid artery (CCA) peak systolic velocity (PSV) is 64 cm/s. The right internal car otid artery (ICA) PSV is 113 cm/s. The right ICA end-diastolic velocity (EDV) is 36 cm/s. The right I CA/CCA PSV ratio is 1.7. Grayscale and color Doppler images yield an estimate of <50% diameter reduct ion from minimal plaque in the ICA. The external carotid artery (ECA) PSV is 38 cm/s. There is antegr iraida flow in the right vertebral artery. LEFT: The left CCA PSV is 76 cm/s. The left ICA PSV is 90 cm/s. The left ICA EDV is 26 cm/s. The left ICA/C CA PSV ratio is 1.2. Grayscale and color Doppler images yield an estimate of <50% diameter reduction from minimal plaque in the ICA. The ECA PSV is 56 cm/s. There is antegrade flow in the left vertebral artery. IMPRESSION: 1. <50% stenosis from minimal plaque in the right internal carotid artery. 2. <50% stenosis from minimal plaque in the left internal carotid artery. Reviewed, dictated and finalized at location A.
--- NOTE | ~2022-11-20 | MR_ITS ---
MRI of the brain Clinical History: Dizziness Technique: Axial and sagittal T1-weighted images were acquired. These were followed by axial T2-weigh jeane, diffusion weighted, gradient, and FLAIR images. Findings: There is no acute infarct, intracranial hemorrhage, or mass lesion. There are small focal a reas of hyperintense signal in the periventricular white matter bilaterally. Ventricles and subarachnoid spaces are unremarkable. Orbits are unremarkable. There is mild left maxi llary sinus disease. Remaining paranasal sinuses and mastoid air cells are clear. Major intracranial flow voids appear intact. Sagittal midline structures are intact. IMPRESSION: Mild chronic microvascular ischemic change, otherwise unremarkable exam. Reviewed, dictated and finalized at location .
--- NOTE | 2022-11-20 07:49 | ECG_ITS ---
Measurements Intervals [place] Rate: 54 P: 33 [place]: 152 QRS: 71 QRSD: 89 T: 73 QT: 419 QTc: 397 Interpretive Statements SINUS BRADYCARDIA OTHERWISE NORMAL ECG COMPARED TO ECG 11/01/2022 14:55:27 SINUS BRADYCARDIA NOW PRESENT Electronically Signed On 11-20-2022 9:46:40 CDT by Nahid Lira M.D.
--- NOTE | 2022-12-18 10:20 | P.PCNHOL_ITS ---
Holter/Event Monitor Holter/Event Monitor Date of procedure: 11/20/22 Holter/Event Procedure: Event Monitor Indications: Syncope Conclusion: 1. 27 days event monitor between 11/20/22-12/18/22. There are 31 available tr ansmissions for analysis. 2. Underlying rhythm is sinus rhythm. HR range 50-127 bpm; average HR 70 bpm. 3. No premature supraventricular complexes. No supraventricular tachycardia. 4. There are occasional premature ventricular complexes with total burden of <1%. No ventricular tachycardia. 5. No significant pauses greater than 2 seconds. 6. Patient reports 7 episodes of symptoms of lightheadedness, dizziness, and symptoms other than listed which demonstrate sinus rhythm, HR range 53-94 bpm.
== END 2022-11-20 07:41 | disposition home or self-care (01) ==
PROVIDERS: PCP Internal Medicine; Visit Provider Internal Medicine
DX: R55 Syncope and collapse (principal); R42 Dizziness and giddiness; I65.23 Occlusion and stenosis of bilateral carotid arteries; R00.1 Bradycardia, unspecified
CPT/HCPCS: 70551; 93005; 93270; 93880

== ENCOUNTER 2023-06-18 07:18 | Outpatient (CLI) | payer MEDICARE, OTHER, SELFPAY ==
--- NOTE | ~2023-06-18 | MM_ITS ---
EXAMINATION: MM screening marzena BI w renata HISTORY: Screening mammogram TECHNIQUE: Craniocaudal and mediolateral oblique 3-D tomosynthesis images were obtained and synthetic 2-D images were generated. CAD analysis was submitted and interpreted. COMPARISON: 05/26/2022, 01/17/2021 bilateral screening mammogram examinations BREAST PARENCHYMAL COMPOSITION: There are scattered areas of fibroglandular density. FINDINGS: There is no evidence of suspicious mass, calcification, or architectural distortion to sugg est malignancy in either breast. There has been no suspicious interval change. IMPRESSION: 1. No mammographic evidence of malignancy. 2. Recommend routine screening mammography in one year. BI-RADS Category 1: Negative Reviewed, dictated and finalized at location A.
--- NOTE | ~2023-06-18 | XR_ITS ---
EXAMINATION: XR hip RT min 2V DATE: 06/18/2023 08:05 INDICATION: Right hip pain TECHNIQUE: Two views of right hip were obtained. COMPARISON: None. FINDINGS: Again noted is developmental dysplasia of the hip. There is moderate hip osteoarthritis. No fracture is identified. The soft tissues are unremarkable. IMPRESSION: 1. Developmental dysplasia of the hip and moderate osteoarthritis without acute osseous abnormality. Reviewed, dictated and finalized at location F.
--- NOTE | ~2023-06-18 | DEXA_ITS ---
Bone Density Report Name: URMILA MOLINA Age: 68 Sex: Female Ethnicity: White Date of : 1955 Indication: postmenopausal; screening for osteoporosis; height loss; Referring Provider: William Orellana Study: Bone densitometry was performed. Exam Date: June 18, 2023 Accession number: [id number] Bone Density: Region BMD T-score Z-score Classification AP Spine(L2, L3, L4) 1.035 -0.4 1.7 Normal Femoral Neck (Left) 0.789 -0.5 1.2 Normal Total Hip (Left) 0.883 -0.5 1.0 Normal Femoral Neck (Right) 0.717 -1.2 0.6 Osteopenia Total Hip (Right) 0.820 -1.0 0.5 Normal Femoral Neck Mean 0.753 -0.9 0.9 Normal Total Hip Mean 0.852 -0.7 0.7 Normal World Health Organization criteria for BMD impression classify patients as: Normal (T-score at or above -1.0), Osteopenia (T-score between -1.0 and -2.5), or Osteoporosis (T-score at or below -2.5). 10-year Fracture Risk(1): Major Osteoporotic Fracture 8.6% Hip Fracture 0.9% Reported Risk Factors: [place] (), Neck BMD=0.717, BMI=33.1 (1) FRAX(R) Version 3.08. Fracture probability calculated for an untreated patient. Fracture probability may be lower if the patient has received treatment. Clinical Information Provided by Patient: Has used the following medications: Vitamin D Patient maximum height was 62.5 Menopause Age: 54 No regular weight bearing exercise Drinks caffeinated beverages Onset of menses at age 11 Number of children 2 Impression: The patient has low bone mass, based on the Right Femoral Neck T-score. Discussion: BONE DENSITY IS LOW AT ONE OR MORE SKELETAL SITES. This patient's lowest T-score is low at one or more skeletal sites. It meets the World Health Organization's (WHO) criteria for ?low bone mass? (T-score between -1.0 and -2.5). The patient's 10-year risk of fracture as calculated by FRAX is less than the threshold where pharmacological therapy is recommended by the National Osteoporosis Foundation (NOF). However, all treatment decisions require clinical judgment and consideration of individual patient factors, including patient preferences, comorbidities, previous drug use, risk factors not captured in the FRAX model (e.g., frailty, falls, vitamin D deficiency, increased bone turnover, interval significant decline in bone density) and possible under or overestimation of fracture risk by FRAX. The patient should follow a healthful lifestyle (good nutrition with adequate calcium and vitamin D, and appropriate weight-bearing exercise). Follow-Up: Consider repeating this study in 2 to 3 years to reassess this patient's status, or sooner if there is some new clinical indication. Reported by: Dr. Compa Pike on 06/18/2023 8:00:00 AM. Reviewed, dictated and finalized at location A.
--- NOTE | ~2023-06-18 | XR_ITS ---
EXAMINATION: XR hip LT min 2V INDICATION: Left hip pain TECHNIQUE: Two views of the left hip are obtained. COMPARISON: CT, 09/30/2021 FINDINGS: Again noted is developmental dysplasia of the hip. There is moderate hip osteoarthritis. No fracture is identified. The soft tissues are unremarkable. IMPRESSION: 1. Developmental dysplasia of the hip and moderate osteoarthritis without acute osseous abnormality. Reviewed, dictated and finalized at location F.
== END 2023-06-18 07:19 | disposition home or self-care (01) ==
LOC: CHSIMG 07:19
PROVIDERS: PCP Internal Medicine; Visit Provider Internal Medicine
DX: Z12.31 Encounter for screening mammogram for malignant neoplasm of breast (principal); M81.0 Age-related osteoporosis without current pathological fracture; Q65.89 Other specified congenital deformities of hip; M16.0 Bilateral primary osteoarthritis of hip; M85.88 Other specified disorders of bone density and structure, other site
CPT/HCPCS: 73502; 77063; 77067; 77080

== ENCOUNTER 2023-07-09 06:52 | Outpatient (CLI) | payer MEDICARE, OTHER, SELFPAY ==
--- NOTE | ~2023-07-09 | MR_ITS ---
MRI of the bilateral hips Clinical history: Bilateral hip pain Technique: Coronal T1-weighted, T2-weighted, and proton-density fat-sat images, and axial T1-weighted and proton-density fat-sat images were acquired through the pelvis. Coronal T2-weighted images and c oronal, axial, and sagittal proton-density fat-sat images were acquired through the bilateral hips. Findings: There is no fracture or avascular necrosis of either hip. Bone marrow signals of the proxim al femora and visualized pelvic bones are essentially unremarkable. There is advanced degenerative change of the left hip joint. There is extensive high-grade chondral m alacia, especially medially, with osteophyte formation at the femoral head neck junction. There is mi ld remodeling of the femoral head. Femoral neck is somewhat shortened, and old, healed fracture is no t completely excluded. There is prominent spurring at the superolateral acetabular margin with mild j oint space narrowing. Minimal left hip joint effusion present. There is probable extensive degenerati ve labral tearing of the left acetabular labrum. There is severe right hip joint osteophytosis, with diffuse high-grade chondral malacia, joint space narrowing, and remodeling of the femoral head articular surface. There is prominent osteophyte format ion, especially at the superolateral acetabular margin. There is probable circumferential degenerativ e tearing of the right acetabular labrum. Minimal right hip joint effusion is present. Possible 6 mm loose body in the joint (series 5 image 18). Musculature about the pelvis and bilateral hips is unremarkable. No muscle atrophy or edema evident. No distinct evidence for bursitis. No mass lesion or fluid collection evident. Visualized tendons jillian ear intact. IMPRESSION: Severe bilateral hip joint osteoarthritis, right worse than left. There is remodeling of the femoral heads, right worse than left. Please see details above. Circumferential degenerative acetabular labral tearing bilaterally. Reviewed, dictated and finalized at location M. IMPRESSION: Severe bilateral hip joint osteoarthritis, right worse than left. There is hannah deling of the femoral heads, right worse than left. Please see details above. Circumferential degenerative acetabular labral tearing bilaterally.
== END 2023-07-09 06:53 | disposition home or self-care (01) ==
LOC: CHSIMG 06:54
PROVIDERS: PCP Internal Medicine; Visit Provider Internal Medicine
DX: M25.552 Pain in left hip (principal); M25.551 Pain in right hip; M16.0 Bilateral primary osteoarthritis of hip; S73.191A Other sprain of right hip, initial encounter; S73.192A Other sprain of left hip, initial encounter
CPT/HCPCS: 73721

== ENCOUNTER 2023-10-13 07:45 | Outpatient (RCR) | payer MEDICARE, OTHER, SELFPAY ==
--- NOTE | 2023-10-13 08:35 | OPREHPOC ---
Outpatient Therapy Plan of Care This is a Multidisciplinary Plan of Care that may contain components documented by all disciplines (PT, OT, and ST.) PT Problem 1 PT Problem #1 Knowledge Deficit PT Goal 1 Goal 1. independent and compliant with HEP Target Visit 5 PT Problem 2 PT Problem #2 Pain PT Goal 1 Goal 1. patient to report pain no more than 3/10 in the R hip and knee Target Visit 9 PT Problem 3 PT Problem #3 Impaired Strength PT Goal 1 Goal 1. improve bilateral bilateral strength to 4+/5 or better 2. improve bilateral knee extension to 5/5 Target Visit 9 PT Problem 4 PT Problem #4 Impaired Functional Mobil PT Goal 1 Goal 1. patient to display modified independence with ambulation with cane in the L hand 2. patient to ambulate 6 minute walk test without increased pain for more than 800ft with most appropriate AD 3. LEFS to display less than 50% functional deficits Target Visit 9
--- NOTE | 2023-10-13 08:36 | PTOPEVAL1 ---
Assessment and note entered by JT File, PT Evaluation Information Assessment Status Evaluation Diagnosis trochanteric bursitis, R hip ICD-10 Condition Codes (PT) Pain in low back M54.50 Other ICD-10 Condition Codes ( M70.62 PT) Onset 10/07/23 Subjective Information patient reports she has had bad hips since . she reports she was referred by her PCP to a specialist. the specialist thinks the lower back is more of the issue. she reports repetitive bending activities when cleaning the house cause back and R knee pain. she reports the knee feels like a needle to the R knee. she reports it is very pin point but is not in the same location every time. she reports steps are also very tough. she reports she has to wait to do laundry all at once. she reports she used to walk a lot, but is limited to a 1/4 mile or less now. she reports the pain in the R knee hurts the most. she is unsure what hip issues she had a as she was adopted . she reports she was told she was in casts for quite some time. she reports one instance laying bed caused a sharp pain in the groin when rolling from her L side to her R side. Reported Pain Level Pain Score 0,0,0: Self Report Assessment PT Clinical Summary mrs. cancino is a 68 yo woman who presents to skilled PT services for evaluation and treatment of R hip pain and R knee pain. she presents today with tenderness to palpation along the bilateral ITB's and bilateral greater trochanters, weakness of the bilateral hips, decreased bilateral hip rom, and Trendelenburg gait sign on the R. she displays signs and symptoms consistent with bilateral hip OA from a hip disorder as a child. she also presents with bilateral ITB syndrome/greater trochanteric bursitis. she would benefit from continued skilled PT to address her objective/ functional deficits and reduce pain/improve functional activity performance for greater quality of life. Plan of Care Interventions Electrical Stimulation,Gait Training,Hot Pack/Cold Pack,Manual Therapy,Neuro Re-education,Patient/ Caregiver Educati,Therapeutic Activities, Therapeutic Exercise PT Services Indicated Yes Treatment Frequency and 3x weekly for 9 visits Duration These treatments will address the objective and funct
--- NOTE | 2023-10-28 07:13 | PCPTNOTE ---
Cancelled session today. Reports she has not eaten since her colonoscopy and feels weak. She reports she will be here Thursday.
--- NOTE | 2023-11-03 07:48 | OPREHPOC ---
Outpatient Therapy Plan of Care This is a Multidisciplinary Plan of Care that may contain components documented by all disciplines (PT, OT, and ST.) PT Problem 1 PT Problem #1 Knowledge Deficit PT Goal 1 Goal 1. independent and compliant with HEP Target Visit 5 Progress Met PT Problem 2 PT Problem #2 Pain PT Goal 1 Goal 1. patient to report pain no more than 3/10 in the R hip and knee Target Visit 9 Progress Met PT Problem 3 PT Problem #3 Impaired Strength PT Goal 1 Goal 1. improve bilateral bilateral strength to 4+/5 or better. not met 2. improve bilateral knee extension to 5/5. met Target Visit 9 Progress Partially Met PT Problem 4 PT Problem #4 Impaired Functional Mobil PT Goal 1 Goal 1. patient to display modified independence with ambulation with cane in the L hand. met 2. patient to ambulate 6 minute walk test without increased pain for more than 800ft with most appropriate AD. met 3. LEFS to display less than 50% functional deficits. met Target Visit 9 Progress Met
--- NOTE | 2023-11-03 07:48 | PTOPDC ---
Assessment and note entered by JT File, PT Evaluation Information Assessment Status Discharge Diagnosis trochanteric bursitis, R hip ICD-10 Condition Codes (PT) Pain in low back M54.50 Other ICD-10 Condition Codes ( M70.62 PT) Onset 10/07/23 Subjective Information patient reports she is a little sore, but reports this is due to the weather. she reports if it were sole out she would feel great. she reports she is compliant with her exercises at home, and has gotten up to 30 reps per exercise/activity for HEP at home. Reported Pain Level Pain Score 1,1,1: Self Report Assessment PT Clinical Summary mrs. cancino presents to skilled PT services for her 8th skilled PT visit today. she presents today with minimal pain and only reports of soreness from the weather over the past few weeks. she has met all goals for skilled PT, except for 4+/5 overall hip strength. her hip strength is improved , but still lacking in abduction. 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 she is ready for DC from therapy today, and will continue with HEP independent at home. Plan of Care PT Services Indicated Yes
== END 2023-11-03 09:47 | disposition home or self-care (01) ==
LOC: CHSPT 07:45
PROVIDERS: Visit Provider Physician Assistant Surgical
DX: M70.61 Trochanteric bursitis, right hip (principal); M54.50 Low back pain, unspecified
CPT/HCPCS: 97110; 97112; 97140; 97161

== ENCOUNTER 2023-10-27 01:45 | Day surgery (SDC) | payer MEDICARE, OTHER, SELFPAY ==
[2023-10-06 13:00] VITALS: BMI 34.0
[2023-10-27 09:25] VITALS: BP 134/74; PULSE 70; RESP 18; TEMP 36.7; O2SAT 99
[2023-10-27] MEDS: LACTATED RINGERS 1,000 ML 150 ML IV CONT (09:35)
--- NOTE | 2023-10-27 09:58 | P.PNAN_ITS ---
Anes - Initial Pre Proc Eval Procedure: Operation Date: 10/27/23 10:30 Proposed Procedures p Screening Colonoscopy - Андрей Ly DO Date/Time: 10/27/23 09:58 Surgeon: Андрей Ly DO Pre Op Diagnosis: Screening for malignant neoplasm of colon Patient Data Age: 68 Gender: F Height: 1.52 m Weight: 78.2 kg Last Vital Signs Temp 36.7 C 10/27/23 09:25 Pulse 70 10/27/23 09:25 Resp 18 10/27/23 09:25 BP 134/74 10/27/23 09:25 Pulse Ox 99 10/27/23 09:25 O2 Del Method Room Air 10/27/23 09:25 Allergies Allergy/AdvReac Type Severity Reaction Status Date / Time No Known Allergies Allergy Verified 10/27/23 09:25 Home Medications Medication Instructions Recorded Confirmed Type losartan 50 mg-hydrochlorothiazide 1 tablet PO DAILY 02/03/19 10/06/23 History 12.5 mg tablet pravastatin 10 mg tablet 10 mg PO DAILY 02/03/19 10/06/23 History potassium chloride 20 mEq 20 meq PO DAILY 10/06/23 10/06/23 History tablet,extended release(part/cryst) meloxicam 15 mg tablet 15 mg PO DAILY #30 tabs 10/07/23 10/07/23 Rx Patient hx anesthesia problems: none Family hx anesthesia problems: none Results Review: All pre-operative results and documents have been reviewed as part of the pre- operative evaluation. [facility] Past Medical History Medical History Arthritis HTN (hypertension) Hypercholesterolemia Obesity Vaso vagal episode Social History Social History Smoking status: Never smoker Second hand tobacco smoke exposure: Yes Alcohol intake: current Substance use: never Substance use type: does not use Do You Feel Safe in your Home?: Yes Lack of Transportation: No Lack of Food: Never True Current Housing: I Have Housing Concerned About Future Housing: No Difficulty Paying Gas/Electric Bills: No Difficulty Paying for Meds: No Currently Unemployed: No Education: Associate Degree Living arrangements: with family Occupation/Education: occupation 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 Informed Consent: The patient's anesthetic plan and its attendant risks and benefits were discussed with the patient/family/POA. Questions were solicited and answers provided to the satisfaction of the patient/family/POA.
--- NOTE | 2023-10-27 10:01 | PM.IMHP ---
H&P: HPI History of Present Illness Date/Time: 10/27/23 10:01 Chief Complaint: history of colon polyps Narrative: this is a 68-year-old woman presents colonoscopy last colonoscopy 7 years ago. She denies any hematochezia melena. She did have polyps removed at her last colonoscopy. She does not know her family history due to being adopted. Review of Systems Review of Systems: All systems reviewed & are unremarkable except as noted in HPI and below Constitutional: Constitutional: Denies chills, Denies fever(s), Denies headache(s) and Denies weight loss Eyes: Eyes: Denies change in vision ENT: Denies dizziness, Denies headache(s), Denies neck mass and Denies throat swelling Cardiovascular: Cardiovascular: Denies chest pain, Denies lightheadedness and Denies dyspnea Respiratory: Respiratory: Denies cough, Denies dyspnea and Denies wheezing Gastrointestinal: Gastrointestinal: Denies abdominal pain, Denies change in bowel habits, Denies nausea and Denies vomiting Genitourinary: Genitourinary: Denies hematuria and Denies dysuria Musculoskeletal: Musculoskeletal: Reports as per HPI Integumentary/Breasts: Skin/Breast: Reports as per HPI Neurologic: Denies dizziness and Denies headache(s) Allergic/Immunologic: Allergic/Immunologic: Denies throat swelling and Denies wheezing PMFSH Past Medical History Medical History Arthritis HTN (hypertension) Hypercholesterolemia Obesity Vaso vagal episode Social History Social History Smoking status: Never smoker Second hand tobacco smoke exposure: Yes Alcohol intake: current Substance use: never Substance use type: does not use Do You Feel Safe in your Home?: Yes Lack of Transportation: No Lack of Food: Never True Current Housing: I Have Housing Concerned About Future Housing: No Difficulty Paying Gas/Electric Bills: No Difficulty Paying for Meds: No Currently Unemployed: No Education: Associate Degree Living arrangements: with family Occupation/Education: occupation 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 Gender identity (if verbalized by the patient): Female Spiritual care concerns: No Meds Home Medications and Allergies Home Medications Medication Instructions Recorded Confirmed Type losartan 50 mg-hydrochlorothiazide 1 tablet PO DAILY 02/03/19 10/06/23 History 12.5 mg tablet pravastatin 10 mg tablet 10 mg PO DAILY 02/03/19 10/06/23 History potassium chloride 20 mEq 20 meq PO DAILY 10/06/23 10/06/23 History tablet,extended release(part/cryst) meloxicam 15 mg tablet 15 mg PO DAILY #30 tabs 10/07/23 10/07/23 Rx Allergies Allergy/AdvReac Type Severity Reaction Status Date / Time No Known Allergies Allergy Verified 10/27/23 09:25 Vital Signs Vital Signs - 24 hr 10/27/23 09:25 Temperature 36.7 C Pulse Rate 70 Respiratory Rate 18 Blood Pressure 134/74 Pulse Oximetry 99 Oxygen Delivery Room Air Exam Const: General: no acute distress and alert Orientation/consciousness: patient oriented x3 HENMT: Head: normocephalic and atraumatic Ears: hearing grossly normal bilaterally Face/Nose/Sinus: Normal nares present Mouth: Yes Normal oral and palatal mucosa present Eyes: Periorbital: periorbital findings normal Sclera: sclerae normal EOM: EOMs intact bilaterally Neck: Neck: normal visual inspection, no lymphadenopathy and trachea midline Chest: Chest palpation & inspection: normal inspection of the chest Resp: Effort & Inspection: normal respiratory effort Auscultation: clear to auscultation bilaterally Cardio: Jugular venous distension: no JVD Rate: regular rate Rhythm: regular rhythm Heart sounds: S1 normal heart sound present and S2 normal heart sound present Peripheral pulses: Peripheral pulses 2+ throughout GI: Inspection: normal to inspection GI Palp:
[2023-10-27 11:23] VITALS: BP 105/68; PULSE 65; RESP 15; O2SAT 96
[2023-10-27 11:33] VITALS: BP 131/81; PULSE 68; RESP 22; O2SAT 100
[2023-10-27 11:43] VITALS: BP 141/75; PULSE 71; RESP 25; O2SAT 100
== END 2023-10-27 11:59 | disposition home or self-care (01) ==
PROVIDERS: PCP Internal Medicine; Visit Provider Surgery
PROC: 0DJD8ZZ Inspection of Lower Intestinal Tract, Via Natural or Artificial Opening Endoscopic (ICD-10-PCS; CPT 45378; principal; 2023-10-27 10:30)
DX: Z12.11 Encounter for screening for malignant neoplasm of colon (principal); D12.5 Benign neoplasm of sigmoid colon; K57.30 Diverticulosis of large intestine without perforation or abscess without bleeding; I10 Essential (primary) hypertension; E78.00 Pure hypercholesterolemia, unspecified; E66.9 Obesity, unspecified; Z68.33 Body mass index [BMI] 33.0-33.9, adult
CPT/HCPCS: 45380; 88305; J2704; J7120

== ENCOUNTER 2024-01-22 07:00 | Outpatient (CLI) | payer MEDICARE, OTHER, SELFPAY ==
--- NOTE | ~2024-01-22 | XR_ITS ---
EXAMINATION: XR chest 2V DATE: 01/22/2024 07:23 INDICATION: 4 weeks of cough TECHNIQUE: PA and lateral views of the chest were obtained. COMPARISON: Chest radiograph dated 11/01/2022 FINDINGS: The lungs remain clear with no focal airspace opacities, pulmonary edema, pleural effusion or pneumot horax. The cardiomediastinal silhouette is normal. Moderate thoracic spondylosis. IMPRESSION: 1. No acute cardiopulmonary disease. Reviewed, dictated and finalized at location A.
== END 2024-01-22 07:01 | disposition home or self-care (01) ==
PROVIDERS: PCP Internal Medicine; Visit Provider Internal Medicine
DX: R05.9 Cough, unspecified (principal)
CPT/HCPCS: 71046

== ENCOUNTER 2024-05-25 16:49 | Outpatient (CLI) | payer MEDICARE, OTHER, SELFPAY ==
--- NOTE | ~2024-05-25 | XR_ITS ---
EXAMINATION: XR chest 2V DATE: 05/25/2024 17:03 INDICATION: Cough. TECHNIQUE: Frontal and lateral views of the chest were obtained. COMPARISON: Chest 2 views 01/22/2024 FINDINGS: There is no pneumonia, pleural effusion, or pneumothorax. The heart size is normal. IMPRESSION: 1. No acute cardiopulmonary disease. Reviewed, dictated and finalized at location A. OR [employer]
[2024-05-25 17:09] LABS: Basophils Absolute Auto 0.03 K/mm3 (0.00-0.10); Basophils Percent Auto 0.5 % (0.0-1.0); Eosinophils Absolute Auto 0.11 K/mm3 (0.02-0.50); Eosinophils Percent Auto 1.8 % (1.0-6.0); Hematocrit 40.6 % (35.0-42.0); Hemoglobin 13.3 g/dL (11.7-13.8); Immature Granulocyte Absolute 0.01 K/mm3 (0.00-0.00); Immature Granulocyte Percent A 0.2 % (0.0-0.0); Lymphocytes Absolute Auto 2.34 K/mm3 (1.10-4.50); Lymphocytes Percent Auto 39.2 % (18.0-42.0); Mean Corpuscular HGB Conc 32.8 g/dL (32-36); Mean Corpuscular Hemoglobin 28.9 pg (27.0-31.0); Mean Corpuscular Volume 88.1 fL (78.0-102.0); Mean Platelet Volume 10.4 fl (9.2-11.8); Monocytes Absolute Auto 0.53 K/mm3 (0.10-0.90); Monocytes Percent Auto 8.9 % (2.0-11.0); Neutrophils Absolute Auto 2.95 K/mm3 (1.70-7.20); Neutrophils Percent Auto 49.4 % (50.0-70.0); Platelet Count Result 192 K/mm3 (150-420); Red Blood Count 4.61 M/mm3 (4.20-5.40); Red Cell Distribution Width 12.7 % (11.6-14.4)
--- OUTSIDE RECORDS SUMMARY | 2024-05-25 17:53 | XMS_ITS | Clinical Summary ---
Author Organization [facility] Address [facility] [place] [address] Care Team Providers Care Head Start Director Name Role Phone Unavailable Primary Care Provider Unavailabl e Social History Tobacco Use Types Packs/Day Years Used Date Smoking Tobacco: Never Assessed Comments Unknown Sex and Gender Information Value Date Recorded Sex Assigned at Not on file Legal Sex Female 6:42 PM CDT Gender Identity Not on file Sexual Orientation Not on file Plan of Treatment Health Maintenance Due Date Last Done Comments Colorectal Cancer Screening Colonoscopy (10 Years) 1955 Hepatitis C 01/14/1972 DTaP, Tdap and Td Vaccines ( 1 - Tdap) 1973 Mammogram Screening 1994 Zoster Vaccines (1 of 2) 01/14/2004 Dexa Scan (General) 2019 Pneumococcal Vaccine: 65+ Ye ars (1 of 1 - PCV) 2019 COVID-19 Vaccine (2023-2 5 season) 2023 Influenza Adult (#1) 2023 RSV Immunization or 60+ Years (1 - 1-dose 75+ series) 2029 Meningococcal B Vaccine Aged Out No l onger eligible based on patient's age to complete this topic Meningococcal Vaccine Aged Out No sánchez martin eligible based on patient's age to complete this topic RSV Immunizations Under 20 Months Aged Out No longer eligible based on patient's age to complete this topic
== END 2024-05-25 16:50 | disposition home or self-care (01) ==
PROVIDERS: PCP Internal Medicine; Visit Provider Internal Medicine
DX: R05.9 Cough, unspecified (principal)
CPT/HCPCS: 36415; 71046; 85025

== ENCOUNTER 2024-07-01 06:56 | Outpatient (CLI) | payer MEDICARE, SELFPAY ==
--- OUTSIDE RECORDS SUMMARY | 2024-07-01 07:00 | XMS_ITS | Clinical Summary ---
Author Organization [facility] Address [facility] [place] [address] Care Team Providers Care Asp Net Developer Name Role Phone Unavailable Primary Care Provider [...] of 1 - PCV) 2019 COVID-19 Vaccine ( - 2023-2 5 season) 2023 RSV Immunization or 60+ Years (1 [...]
[2024-07-01 07:19] LABS: Hematocrit 40.6 % (35.0-42.0); Hemoglobin 13.6 g/dL (11.7-13.8); Mean Corpuscular HGB Conc 33.5 g/dL (32-36); Mean Corpuscular Hemoglobin 29.6 pg (27.0-31.0); Mean Corpuscular Volume 88.3 fL (78.0-102.0); Mean Platelet Volume 10.2 fl (9.2-11.8); Platelet Count Result 196 K/mm3 (150-420); Red Cell Distribution Width 12.8 % (11.6-14.4); White Blood Count 6.6 K/mm3 (4.8-10.8)
[2024-07-01 08:19] LABS: Alanine Aminotransferase 30 U/L (14-59); Albumin Level 3.9 g/dL (3.4-5.0); Alkaline Phosphatase 123 U/L (46-116); Anion Gap 8 mmol/L (4-12); Aspartate Amino Transferase 11 U/L (15-37); Bilirubin,Total 0.7 mg/dL (0.00-1.00); Blood Urea Nitrogen 18 mg/dL (7-18); Calcium 9.2 mg/dL (8.5-10.1); Carbon Dioxide 29 mmol/L (21-32); Chloride 107 mmol/L (98-108); Cholesterol 185 mg/dL (0-200); Creatine Kinase 83 U/L (26-192); Estimated Glomerular Filt Rate 58; Glucose 100 mg/dL (70-99); HDL Direct 44 mg/dL (40-60); LDL Cholesterol Calculated 96 mg/dL (<130); Osmolality Calculated 299 mOsm/kg (285-295); Potassium 4.2 mmol/L (3.5-5.1); Sodium 144 mmol/L (136-145); Triglycerides 224 mg/dL (0-150)
== END 2024-07-01 06:57 | disposition home or self-care (01) ==
LOC: CHSLAB 06:58
PROVIDERS: PCP Internal Medicine; Visit Provider Internal Medicine
DX: E78.2 Mixed hyperlipidemia (principal); I10 Essential (primary) hypertension; J30.81 Allergic rhinitis due to animal (cat) (dog) hair and dander
CPT/HCPCS: 36415; 80053; 80061; 82550; 85027

== ENCOUNTER 2024-07-13 07:15 | Outpatient (CLI) | payer MEDICARE, SELFPAY ==
--- OUTSIDE RECORDS SUMMARY | 2024-07-13 07:19 | XMS_ITS | Clinical Summary ---
Author Organization [facility] Address [facility] [place] [address] Care Team Providers Care Prosthetist Name Role Phone Unavailable Primary Care Provider [...] 1 - Tdap) 1973 Mammogram Screening 1994 Pneumococcal Vaccine: 50+ Ye ars (1 of 1 - PCV) 01/14/2004 Zoster Vaccines (1 of 2) 01/14/2004 Dexa Scan (General) 2019 COVID-19 Vaccine ( - 2023-2 5 [...]
[2024-07-13 07:28] LABS: Add Urine Microscopic? NO; Appearance Urine Clear (Clear); Bilirubin Urine Negative (Negative); Blood Urine Negative (Negative); Color Urine Light Yellow (Yellow); Glucose Urine UA Negative (Negative); Ketones Urine Negative (Negative); Leukocyte Esterase Ur Negative LEU/UL (Negative); Nitrate Urine Negative (Negative); Protein Urine Negative (Negative); Specific Grav Ur 1.015 (1.010-1.020); Urobilinogen Urine 0.2 mg/dL (0.2-1.0); pH Urine 5.5 (5.0-8.0)
== END 2024-07-13 07:16 | disposition home or self-care (01) ==
LOC: CHSLAB 07:17
PROVIDERS: PCP Internal Medicine; Visit Provider Internal Medicine
DX: E78.2 Mixed hyperlipidemia (principal); I10 Essential (primary) hypertension; J30.89 Other allergic rhinitis
CPT/HCPCS: 81003

== ENCOUNTER 2024-12-06 07:27 | Outpatient (CLI) | payer MEDICARE, OTHER, SELFPAY ==
--- NOTE | ~2024-12-06 | MM_ITS ---
EXAMINATION: MM screening marzena BI w renata HISTORY: Screening TECHNIQUE: Craniocaudal and mediolateral oblique 3-D tomosynthesis images were obtained and synthetic 2-D images were generated. CAD analysis was submitted and interpreted. COMPARISON: 06/18/2023 BREAST PARENCHYMAL COMPOSITION: Not Dense: The breasts are almost entirely fatty. FINDINGS: There is no evidence of suspicious mass, calcification, or architectural distortion to suggest malignancy. There has been no suspicious interval change. IMPRESSION: 1. No mammographic evidence of malignancy. Recommend routine screening mammography in one year. BI-RADS Category 2: Benign finding(s) Reviewed, dictated and finalized at location Q. IMPRESSION: 1. No mammographic evidence of malignancy. Recommend routine screening mammogra phy in one year. BI-RADS Category 2: Benign finding(s)
== END 2024-12-06 07:28 | disposition home or self-care (01) ==
PROVIDERS: PCP Internal Medicine; Visit Provider Internal Medicine
DX: Z12.31 Encounter for screening mammogram for malignant neoplasm of breast (principal)
CPT/HCPCS: 77063; 77067

== ENCOUNTER 2025-01-04 07:33 | Outpatient (CLI) | payer MEDICARE, OTHER, SELFPAY ==
--- OUTSIDE RECORDS SUMMARY | 2025-01-04 07:37 | XMS_ITS | Clinical Summary ---
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
[2025-01-04 08:00] LABS: Hemoglobin A1C 5.6 % (<5.7)
[2025-01-04 08:22] LABS: Alanine Aminotransferase 32 U/L (6-35); Albumin Level 4.5 g/dL (3.5-5.1); Alkaline Phosphatase 103 U/L (38-126); Anion Gap 11 mmol/L (4-12); Aspartate Amino Transferase 28 U/L (14-36); Bilirubin,Total 0.7 mg/dL (0.2-1.3); Blood Urea Nitrogen 19 mg/dL (7-17); Calcium 10.0 mg/dL (8.4-10.2); Carbon Dioxide 27 mmol/L (22-30); Chloride 105 mmol/L (98-107); Cholesterol 170 mg/dL (0-200); Creatine Kinase 79 U/L (30-135); Estimated Glomerular Filt Rate 60; Glucose 108 mg/dL (65-110); HDL Direct 38 mg/dL; Osmolality Calculated 299 mOsm/kg (285-295); Potassium 4.1 mmol/L (3.4-5.0); Sodium 143 mmol/L (137-145); Total Protein 8.2 g/dL (6.3-8.2); Triglycerides 194 mg/dL (<150)
[2025-01-04 18:26] LABS: Add Urine Microscopic? YES; Appearance Urine Clear (Clear); Glucose Urine UA Negative (Negative); Leukocyte Esterase Ur Trace (Negative); Nitrate Urine Negative (Negative); Specific Grav Ur 1.015 (1.010-1.020)
== END 2025-01-04 07:34 | disposition home or self-care (01) ==
PROVIDERS: PCP Internal Medicine; Visit Provider Internal Medicine
DX: R73.01 Impaired fasting glucose (principal); E78.2 Mixed hyperlipidemia; N39.0 Urinary tract infection, site not specified
CPT/HCPCS: 36415; 80053; 80061; 81001; 82550; 83036; 87086